=== PATIENT | female | born 1975 | race Caucasian/White ===

== ENCOUNTER 2016-09-05 05:28 | Emergency (ER) | payer MEDICAID ==
[2016-09-05] MEDS ORDERED: ONDANSETRON HCL IV 4 MG/2 ML VIAL IV ONE (05:46)
[2016-09-05] MEDS ORDERED: 0.9 % SODIUM CHLORIDE 1,000 ML BAG IV ONE (05:46)
[2016-09-05 05:55] LABS: BASO % 0.3 % (0-6); EOS % 5.1 % (0-6); GRAN % 51.5 % (47-80); HEMATOCRIT 42.3 % (35.0-47.0); HEMOGLOBIN 14.1 gm/dl (11.6-16.0); MEAN CELL VOLUME 85.8 fl (81-97); MEAN CORPUSCULAR HEMOGLOBIN 28.6 pg (27-33); MEAN CORPUSCULAR HGB CONC 33.3 g/dl (32-36); MONO % 5.1 % (0-9); PLATELET COUNT 461 K/uL (130-400); RED BLOOD COUNT 4.93 M/uL (3.80-5.40); RED CELL DISTRIBUTION WIDTH 14.3 % (11.5-14.5); WHITE BLOOD COUNT W/O DIFF 14.4 K/uL (4.2-12.2)
[2016-09-05 06:01] LABS: ALBUMIN 4.5 gm/dL (3.5-5.0); ALKALINE PHOSPHATASE 98 U/L (38-126); ALT/SGPT 33 U/L (9-52); ANION GAP 13.1 (7-16); AST/SGOT 22 U/L (14-36); BILIRUBIN,TOTAL 1.09 mg/dL (0.2-1.3); BLOOD UREA NITROGEN 10 mg/dL (7-17); CARBON DIOXIDE 21.9 mmol/L (22-30); CREATININE 0.9 mg/dL (0.52-1.04); EST GLOMERULAR FILTRATION RATE > 60 ml/min; GLUCOSE,RANDOM 119 mg/dL (70-110); LIPASE 99 U/L (23-300); TOTAL PROTEIN 8.4 gm/dL (6.3-8.2)
[2016-09-05] MEDS ORDERED: LORAZEPAM 2 MG/ML VIAL IV ONE ×2 (06:05→06:30)
[2016-09-05] MEDS ORDERED: PROMETHAZINE HCL 25 MG in 0.9 % SODIUM CHLORIDE 100ML 50 ML IVP ONE (06:06)
--- NOTE | 2016-09-05 06:07 | Emergency Department Record ---
History of Present Illness - General Chief complaint: Vomiting Stated complaint: ABDOMINAL PAIN Time Seen by Provider: 09/05/16 05:45 Source: Patient Mode of Arrival: Ambulatory - History of Present Illness Initial comments: Patient states she has been nauseated, vomiting, dry heaving intermittently for the past 2 days. She has LUQ AP which radiates to her left shoulder and into her lower left abdomen. She states this same problem happened one year ago when she went to [place] and was observed there for this. US abdomen at that time was normal. PMH show depression, anxiety, asthma, seasonal allergies, diverticulitis, pain syndrome right lower leg. MD complaint: Abdominal pain, Nausea, Vomiting Onset/Timin -: Days(s) Location: LUQ, LLQ Severity: Severe Severity scale (1-10): 9 Quality: Stabbing Consistency: Constant, Getting worse Improves with: None Worsens with: None Associated Symptoms: Nausea/vomiting - Related Data Home Medications Medication Instructions Recorded Confirmed Last Taken Escitalopram Oxalate [Lexapro] 20 mg PO DAILY 10/15/15 09/05/16 Unknown Tramadol HCl 50 mg PO BID 10/15/15 09/05/16 Unknown Buspirone HCl [Buspar] 15 mg PO BID 09/05/16 09/05/16 Unknown Lorazepam [Ativan] 1 mg PO ASDIR PRN 09/05/16 09/05/16 Unknown Allergies Allergy/AdvReac Type Severity Reaction Status Date / Time No Known Drug Allergies Allergy Verified 10/15/15 18:05 Travel Screening - Travel/Exposure Within Last 30 Days Have you traveled within the last 30 days?: No Review of Systems Reviewed: No additional complaints except as noted below Constitutional: Reports: As per HPI. Denies: Chills, Fever, Malaise, Night sweats, Weakness, Weight change Eyes: Reports: As per HPI. Denies: Eye discharge, Eye pain, Photophobia, Vision change ENT: Reports: As per HPI. Denies: Congestion, Dental pain, Ear pain, Epistaxis , Hearing loss, Throat pain Respiratory: Reports: As per HPI. Denies: Cough, Dyspnea, Hemoptysis, Stridor, Wheezes Cardiovascular: Reports: As per HPI. Denies: Arrhythmia, Chest pain, Dyspnea on exertion, Edema, Murmurs, Orthopnea, Palpitations, Paroxysmal nocturnal dyspnea, Rheumatic Fever, Syncope Endocrine: Reports: As per HPI. Denies: Fatigue, Heat or cold intolerance, Polydipsia, Polyuria Gastrointestinal: Reports: As per HPI. Denies: Abdominal pain, Constipation, Diarrhea, Hematemesis, Hematochezia, Melena, Nausea, Vomiting Genitourinary: Reports: As per HPI. Denies: Abnormal menses, Discharge, Dyspareunia, Dysuria, Frequency, Hematuria, Incontinence, Retention, Urgency Musculoskeletal: Reports: As per HPI. Denies: Arthralgia, Back pain, Gout, Joint swelling, Myalgia, Neck pain Skin: Reports: As per HPI. Denies: Bruising, Change in color, Change in hair/ nails, Lesions, Pruritus, Rash Neurological: Reports: As per HPI. Denies: Abnormal gait, Confusion, Headache, Numbness, Paresthesias, Seizure, Tingling, Tremors, Vertigo, Weakness Psychiatric: Reports: As per HPI. Denies: Anxiety, Auditory hallucinations, Depression, Homicidal thoughts, Suicidal thoughts, Visual hallucinations Hematological/Lymphatic: Reports: As per HPI. Denies: Anemia, Blood Clots, Easy bleeding, Easy bruising, Swollen glands Past Medical History - SOCIAL HISTORY Smoking Status: Never smoker Alcohol Use: None Drug Use: None - RESPIRATORY Hx Respiratory Disorders: Yes Hx Asthma: Yes (seasonal) Comment:: seasonal allergies - CARDIOVASCULAR Hx Cardio Disorders: No - NEURO Hx Neuro Disorders: No - GI Hx GI Disorders: Yes Hx Ulcer: Yes - Hx Genitourinary Disorders: No - ENDOCRINE Hx Endocrine Disorders: No - MUSCULOSKELETAL Hx Musculoskeletal Disorders: Yes Comment:: RSD - PSYCH Hx Psych Problems: Yes Hx Anxiety: Yes - HEMATOLOGY/ONCOLOGY Hx Hematology/Oncology Disorders: No Family Medical History Any Significant Family History?: Yes Hx Cancer: Father, Brother/Sister, Grandparents Physical Exam - General General Appearance: Alert, Oriented x3, Cooperative, No acute distress, Anxious , Other (obese, loudly coughing, gagging, making herself vomit/dry heave into emesis bag, diaphoretic, tachycardic) - Head Head exam: Normal inspection - Eye Eye exam: Normal appearance, PERRL Pupils: Normal accommodation - ENT ENT exam: Normal exam, Mucous membranes moist, Normal external ear exam, Normal orophraynx, TM's normal bilaterally Ear exam: Normal external inspection. negative: External canal tenderness Nasal Exam: Normal inspection. negative: Discharge, Sinus tenderness Mouth exam: Normal external inspection, Tongue normal Teeth exam: Normal inspection. negative: Dental caries Throat exam: Normal inspection. negative: Tonsillar erythema, Tonsillar exudate - Neck Neck exam: Normal inspection, Full ROM. negative: Tenderness - Respiratory Respiratory exam: Normal lung sounds bilaterally. negative: Respiratory distress - Cardiovascular Cardiovascular Exam: Normal rhythm, Normal heart sounds, Tachycardia - GI/Abdominal GI/Abdominal exam: Soft, Normal bowel sounds, Tenderness (LUQ tender). negative : Guarding, Rebound, Rigid - Rectal Rectal exam: Deferred - exam: Deferred - Extremities Extremities exam: Normal inspection, Full ROM, Normal capillary refill. negative: Calf tenderness, Pedal edema, Tenderness - Back Back exam: Reports: Normal inspection, Full ROM. Denies: Muscle spasm, Rash noted, Tenderness - Neurological Neurological exam: Alert, Normal gait, Oriented X3, Reflexes normal - Psychiatric Psychiatric exam: Normal affect, Normal mood - Skin Skin exam: Diaphoretic, Intact, Normal color, Warm Course Vital Signs 09/05/16 05:35 Temperature 98.4 F Pulse Rate [ 122 H Pulse Ox Probe] Respiratory 20 Rate Blood Pressure 123/110 [Left Arm] Pulse Ox 96 - Reevaluation(s) Reevaluation #1: Patient is moaning rocking tensely on her cart, loudly heaving into emesis bag , heard throughout the EDept. Patient was told to stop doing this, was coached for about 5 minutes on stopping the loud noise, stopping the coughing, stopping the rocking, relaxation technique instructed. I explained that she is to NOT do any of the above again and that she would get medication and she is to lay back in cart and try to sleep. Patient immediately stopped as instructed. 09/05/16 06:26 Reevaluation #2: Recheck of patient shows she has stopped the above behaviors, her diaphoresis has resolved, she is laying back on cart, more restful and quiet. She states she is "still very nauseous." She is up to bathroom and ativan is ordered. 09/05/16 06:31 Reevaluation #3: Patient has calmed down after being talked to and instructed, and meds given. Her skin is now dry, her pulse has decreased to under 100, and IV potassium has been hung for her low K on her blood work. Day shift physician will assume care and re-assess after infusion of potassium. UA and UDS just sent down to lab. She states she is still nauseated. 09/05/16 06:38 Reevaluation #4: Care turned over to day shift physician. 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
[2016-09-05] MEDS ORDERED: POTASSIUM CHL 20MEQ IN 1L NS 20 MEQ/1,000 ML BAG IV ONE (06:20)
[2016-09-05 06:41] LABS: URINE APPEARANCE CLEAR; URINE BILIRUBIN NEGATIVE (NEGATIVE); URINE BLOOD NEGATIVE (NEGATIVE); URINE COLOR YELLOW; URINE GLUCOSE (UA) NEGATIVE (NEGATIVE); URINE KETONE NEGATIVE (NEGATIVE); URINE LEUKOCYTE ESTERASE NEGATIVE (NEGATIVE); URINE NITRITE NEGATIVE (NEGATIVE); URINE PROTEIN NEGATIVE (NEGATIVE); URINE UROBILINOGEN 0.2 E.U./dL (0.20 - 1.00)
[2016-09-05 06:43] LABS: HCG,QUALITATIVE URINE NEGATIVE (NEGATIVE)
[2016-09-05 06:45] LABS: AMPHETAMINE SCREEN URINE NOT DETECTED; BARBITURATE SCREEN URINE NOT DETECTED; BENZODIAZEPINE SCREEN URINE DETECTED; COCAINE SCREEN URINE NOT DETECTED; METHADONE SCREEN URINE NOT DETECTED; METHAMPHETAMINE SCREEN NOT DETECTED; OPIATE SCREEN URINE NOT DETECTED; OXYCODONE SCREEN URINE NOT DETECTED; PHENCYCLIDINE SCREEN URINE NOT DETECTED; PROPOXYPHENE SCREEN URINE NOT DETECTED; THC SCREEN URINE DETECTED; TRICYCLIC ANTIDEPRESSANT SCRN NOT DETECTED
[2016-09-05] MEDS ORDERED: ONDANSETRON HCL IV 4 MG/2 ML VIAL IVP ONE (07:29)
[2016-09-05] MEDS ORDERED: DIPHENHYDRAMINE HCL IV 50 MG/ML VIAL IVP ONE (08:20)
--- NOTE | 2016-09-05 08:31 | Emergency Department Record ---
History of Present Illness - General Chief complaint: Vomiting Stated complaint: ABDOMINAL PAIN Time Seen by Provider: 09/05/16 05:45 Source: Patient Mode of Arrival: Ambulatory - History of Present Illness MD complaint: Abdominal pain, Nausea, Vomiting Onset/Timin -: Days(s) Location: [facility], [facility] Severity: Severe Severity scale (1-10): 9 Quality: Stabbing Consistency: Constant, Getting worse Improves with: None Worsens with: None Associated Symptoms: Nausea/vomiting - Related Data Home Medications Medication Instructions Recorded Confirmed Last Taken Escitalopram Oxalate [Lexapro] 20 mg PO DAILY 10/15/15 09/05/16 Unknown Tramadol HCl 50 mg PO BID 10/15/15 09/05/16 Unknown Buspirone HCl [Buspar] 15 mg PO BID 09/05/16 09/05/16 Unknown Lorazepam [Ativan] 1 mg PO ASDIR PRN 09/05/16 09/05/16 Unknown Previous Rx's Medication Instructions Recorded Promethazine HCl [Phenergan] 12.5 mg PO TID #7 tablet 09/05/16 Allergies Allergy/AdvReac Type Severity Reaction Status Date / Time No Known Drug Allergies Allergy Verified 10/15/15 18:05 Travel Screening - Travel/Exposure Within Last 30 Days Have you traveled within the last 30 days?: No Review of Systems Constitutional: Reports: As per HPI. Denies: Chills, Fever, Malaise, Night sweats, Weakness, Weight change Eyes: Reports: As per HPI. Denies: Eye discharge, Eye pain, Photophobia, Vision change ENT: Reports: As per HPI. Denies: Congestion, Dental pain, Ear pain, Epistaxis , Hearing loss, Throat pain Respiratory: Reports: As per HPI. Denies: Cough, Dyspnea, Hemoptysis, Stridor, Wheezes Cardiovascular: Reports: As per HPI. Denies: Arrhythmia, Chest pain, Dyspnea on exertion, Edema, Murmurs, Orthopnea, Palpitations, Paroxysmal nocturnal dyspnea, Rheumatic Fever, Syncope Endocrine: Reports: As per HPI. Denies: Fatigue, Heat or cold intolerance, Polydipsia, Polyuria Gastrointestinal: Reports: As per HPI. Denies: Abdominal pain, Constipation, Diarrhea, Hematemesis, Hematochezia, Melena, Nausea, Vomiting Genitourinary: Reports: As per HPI. Denies: Abnormal menses, Discharge, Dyspareunia, Dysuria, Frequency, Hematuria, Incontinence, Retention, Urgency Musculoskeletal: Reports: As per HPI. Denies: Arthralgia, Back pain, Gout, Joint swelling, Myalgia, Neck pain Skin: Reports: As per HPI. Denies: Bruising, Change in color, Change in hair/ nails, Lesions, Pruritus, Rash Neurological: Reports: As per HPI. Denies: Abnormal gait, Confusion, Headache, Numbness, Paresthesias, Seizure, Tingling, Tremors, Vertigo, Weakness Psychiatric: Reports: As per HPI. Denies: Anxiety, Auditory hallucinations, Depression, Homicidal thoughts, Suicidal thoughts, Visual hallucinations Hematological/Lymphatic: Reports: As per HPI. Denies: Anemia, Blood Clots, Easy bleeding, Easy bruising, Swollen glands Past Medical History - SOCIAL HISTORY Smoking Status: Never smoker Alcohol Use: None Drug Use: None - RESPIRATORY Hx Respiratory Disorders: Yes Hx Asthma: Yes (seasonal) Comment:: seasonal allergies - CARDIOVASCULAR Hx Cardio Disorders: No - NEURO Hx Neuro Disorders: No - GI Hx GI Disorders: Yes Hx Ulcer: Yes - Hx Genitourinary Disorders: No - ENDOCRINE Hx Endocrine Disorders: No - MUSCULOSKELETAL Hx Musculoskeletal Disorders: Yes Comment:: RSD - PSYCH Hx Psych Problems: Yes Hx Anxiety: Yes - HEMATOLOGY/ONCOLOGY Hx Hematology/Oncology Disorders: No Family Medical History Any Significant Family History?: Yes Hx Cancer: Father, Brother/Sister, Grandparents Course Vital Signs 09/05/16 09/05/16 05:35 06:46 Temperature 98.4 F Pulse Rate [ 122 H 79 Pulse Ox Probe] Respiratory 20 19 Rate Blood Pressure 123/110 154/86 [Left Arm] Pulse Ox 96 98 - Reevaluation(s) Reevaluation #1: 09/05/16 08:26 pt rec'd more zofran and benadryl. pt denies ap. pt recd iv potassium. pt wants to go home Medical Decision Making - Lab Data Result diagrams: 09/05/16 05:50 09/05/16 05:50 Lab Results 09/05/16 09/05/16 09/05/16 Range/Units 05:50 05:50 06:30 WBC 14.4 H (4.2-12.2) K/uL RBC 4.93 (3.80-5.40) M/uL Hgb 14.1 (11.6-16.0) gm/dl Hct 42.3 (35.0-47.0) % MCV 85.8 (81-97) fl MCH 28.6 (27-33) pg MCHC 33.3 (32-36) g/dl RDW 14.3 (11.5-14.5) % Plt Count 461 H (130-400) K/uL MPV 9.0 (7.4-10.4) fl Gran % 51.5 (47-80) % Lymphocytes % 38.0 (16-45) % Monocytes % 5.1 (0-9) % Eosinophils % 5.1 (0-6) % Basophils % 0.3 (0-6) % Sodium 140 (136-145) mmol/L Potassium 3.1 L (3.5-5.1) mmol/L Chloride 105 (98-107) mmol/L Carbon Dioxide 21.9 L (22-30) mmol/L Anion Gap 13.1 (7-16) BUN 10 (7-17) mg/dL Creatinine 0.9 (0.52-1.04) mg/dL Estimated GFR > 60 ml/min Random Glucose 119 H (70-110) mg/dL Calcium 9.0 (8.5-10.1) mg/dL Total Bilirubin 1.09 (0.2-1.3) mg/dL Direct Bilirubin 0.0 (0-0.3) mg/dL AST 22 (14-36) U/L ALT 33 (9-52) U/L Alkaline Phosphatase 98 (38-126) U/L Total Protein 8.4 H (6.3-8.2) gm/dL Albumin 4.5 (3.5-5.0) gm/dL Lipase 99 (23-300) U/L Urine Color Yellow Urine Appearance Clear Urine pH 6.5 (5.0-8.0) Ur Specific [place] 1.015 (1.002-1.030) Urine Protein Negative (NEGATIVE) Urine Glucose (UA) Negative (NEGATIVE) Urine Ketones Negative (NEGATIVE) Urine Blood Negative (NEGATIVE) Urine Nitrite Negative (NEGATIVE) Urine Bilirubin Negative (NEGATIVE) Urine Urobilinogen 0.2 (0.20 - 1.00) E.U./dL Ur Leukocyte Esterase Negative (NEGATIVE) Urine HCG, Qual Negative (NEGATIVE) Urine Opiates Screen Ur Oxycodone Screen Urine Methadone Screen Ur Propoxyphene Screen Ur Barbituates Screen Ur Tricyclics Screen Ur Phencyclidine Scrn Ur Amphetamine Screen U Methamphetamines Scrn U Benzodiazepines Scrn Urine Cocaine Screen Urine Cannabis Screen 09/05/16 Range/Units 06:30 WBC (4.2-12.2) K/uL RBC (3.80-5.40) M/uL Hgb (11.6-16.0) gm/dl Hct (35.0-47.0) % MCV (81-97) fl MCH (27-33) pg MCHC (32-36) g/dl RDW (11.5-14.5) % Plt Count (130-400) K/uL MPV (7.4-10.4) fl Gran % (47-80) % Lymphocytes % (16-45) % Monocytes % (0-9) % Eosinophils % (0-6) % Basophils % (0-6) % Sodium (136-145) mmol/L Potassium (3.5-5.1) mmol/L Chloride (98-107) mmol/L Carbon Dioxide (22-30) mmol/L Anion Gap (7-16) BUN (7-17) mg/dL Creatinine (0.52-1.04) mg/dL Estimated GFR ml/min Random Glucose (70-110) mg/dL Calcium (8.5-10.1) mg/dL Total Bilirubin (0.2-1.3) mg/dL Direct Bilirubin (0-0.3) mg/dL AST (14-36) U/L ALT (9-52) U/L Alkaline Phosphatase (38-126) U/L Total Protein (6.3-8.2) gm/dL Albumin (3.5-5.0) gm/dL Lipase (23-300) U/L Urine Color Urine Appearance Urine pH (5.0-8.0) Ur Specific [place] (1.002-1.030) Urine Protein (NEGATIVE) Urine Glucose (UA) (NEGATIVE) Urine Ketones (NEGATIVE) Urine Blood (NEGATIVE) Urine Nitrite (NEGATIVE) Urine Bilirubin (NEGATIVE) Urine Urobilinogen (0.20 - 1.00) E.U./dL Ur Leukocyte Esterase (NEGATIVE) Urine HCG, Qual (NEGATIVE) Urine Opiates Screen Not detected Ur Oxycodone Screen Not detected Urine Methadone Screen Not detected Ur Propoxyphene Screen Not detected Ur Barbituates Screen Not detected Ur Tricyclics Screen Not detected Ur Phencyclidine Scrn Not detected Ur Amphetamine Screen Not detected U Methamphetamines Scrn Not detected U Benzodiazepines Scrn Detected Urine Cocaine Screen Not detected Urine Cannabis Screen Detected Disposition Clinical Impression: Hypokalemia Nausea and vomiting Qualifiers: Vomiting type: psychogenic vomiting Qualified Code(s): F50.89 - Other specified eating disorder Disposition: Home, Self-Care Instructions: Generalized Anxiety Disorder (ED), Acute Nausea and Vomiting (ED) Additional Instructions: follow up with family doctor. return sooner if worse Prescriptions: Promethazine HCl [Phenergan] 12.5 mg PO TID #7 tablet Forms: Patient Portal Access Quality - Quality Measures Quality Measures: N/A - Blood Pressure Screening Blood Pressure Classification: Pre-Hypertensive BP Reading Systolic Measurement: 154 Diastolic Measurement: 86 Screening for High Blood Pressure: < First Hypertensive BP, F/U Documented > [ G8950] First Hypertensive Follow-up Interventions: Follow-up with rescreen GT 1 day and LT 4 weeks.
== END 2016-09-05 08:47 | disposition home or self-care (01) ==
LOC: ER 05:28
DX: E87.6 Hypokalemia (principal); F80.89 Other developmental disorders of speech and language; R11.2 Nausea with vomiting, unspecified; R10.84 Generalized abdominal pain; Z79.899 Other long term (current) drug therapy
CPT/HCPCS: 99285 ×2; 96376; 96374; 96375; 83690; 85025; 80076; 80048; 81003; 81025; 80305; J2405; J2060; J1200; J2550; J7030

== ENCOUNTER 2016-09-05 18:15 | Emergency (ER) | payer MEDICAID | END 2016-09-05 19:31 | disposition left against medical advice (07) | LOC: ER 18:15 | DX: Z53.20 Procedure and treatment not carried out because of patient's decision for unspecified reasons (principal) ==

== ENCOUNTER 2017-07-29 07:36 | Emergency (ER) | payer MEDICAID ==
--- NOTE | 2017-07-29 08:05 | Emergency Department Record ---
History of Present Illness - General Chief Complaint: Abdominal Pain Stated Complaint: ABDOMINAL PAIN/ANXIETY Time Seen by Provider: 07/29/17 07:58 Source: Patient, RN notes reviewed Mode of Arrival: Ambulatory - History of Present Illness Initial Comments: patient states her mom got a diagnosis of lung cancer and anxiety started with abdominal pain and vomiting times 20 and diarrhea times 10 but she thinks it is anxiety over her mom. She tried an ultram but vomited it up for epigastric abdominal pain. MD Complaint: Abdominal pain Onset/Timin -: Hour(s) Location: LUQ, LLQ Radiation: Other Severity scale (1-10): 10 Quality: Burning Consistency: Constant Improves With: Nothing Worsens With: Nothing Context: Other Associated Symptoms: Other - Related Data LMP (females 10-50): This week Patient : No Previous Rx's Medication Instructions Recorded Lorazepam [Ativan] 0.5 mg PO Q8HR #10 tablet 07/29/17 Lorazepam [Ativan] 0.5 mg PO Q8HR #10 tablet 07/29/17 Omeprazole 20 mg PO DAILY #30 cap. 07/29/17 Promethazine HCl [Phenergan] 25 mg PO Q6HR #10 tablet 07/29/17 Allergies Allergy/AdvReac Type Severity Reaction Status Date / Time No Known Drug Allergies Allergy Verified 07/29/17 07:41 Travel Screening - Travel/Exposure Within Last 30 Days Have you traveled within the last 30 days?: No - Travel/Exposure Within Last Year Have you traveled outside the [place] in the last year?: No - Additonal Travel Details Have you been exposed to anyone with a communicable illness?: No - Travel Symptoms Symptom Screening: None Review of Systems Reviewed: No additional complaints except as noted below Constitutional: Reports: As per HPI. Denies: Chills, Fever, Malaise, Night sweats, Weakness, Weight change Eyes: Reports: As per HPI. Denies: Eye discharge, Eye pain, Photophobia, Vision change ENT: Reports: As per HPI. Denies: Congestion, Dental pain, Ear pain, Epistaxis , Hearing loss, Throat pain Respiratory: Reports: As per HPI. Denies: Cough, Dyspnea, Hemoptysis, Stridor, Wheezes Cardiovascular: Reports: As per HPI. Denies: Arrhythmia, Chest pain, Dyspnea on exertion, Edema, Murmurs, Orthopnea, Palpitations, Paroxysmal nocturnal dyspnea, Rheumatic Fever, Syncope Endocrine: Reports: As per HPI. Denies: Fatigue, Heat or cold intolerance, Polydipsia, Polyuria Gastrointestinal: Reports: As per HPI, Abdominal pain (epigastric), Diarrhea, Nausea, Vomiting. Denies: Constipation, Hematemesis, Hematochezia, Melena Genitourinary: Reports: As per HPI. Denies: Abnormal menses, Discharge, Dyspareunia, Dysuria, Frequency, Hematuria, Incontinence, Retention, Urgency Musculoskeletal: Reports: As per HPI. Denies: Arthralgia, Back pain, Gout, Joint swelling, Myalgia, Neck pain Skin: Reports: As per HPI. Denies: Bruising, Change in color, Change in hair/ nails, Lesions, Pruritus, Rash Neurological: Reports: As per HPI. Denies: Abnormal gait, Confusion, Headache, Numbness, Paresthesias, Seizure, Tingling, Tremors, Vertigo, Weakness Psychiatric: Reports: As per HPI. Denies: Anxiety, Auditory hallucinations, Depression, Homicidal thoughts, Suicidal thoughts, Visual hallucinations Hematological/Lymphatic: Reports: As per HPI. Denies: Anemia, Blood Clots, Easy bleeding, Easy bruising, Swollen glands Past Medical History - SOCIAL HISTORY Smoking Status: Never smoker Alcohol Use: None Drug Use: Occasional Drug Use Detail:: Marijuana - RESPIRATORY Hx Respiratory Disorders: Yes Hx Asthma: Yes (seasonal) Comment:: seasonal allergies - CARDIOVASCULAR Hx Cardio Disorders: No - NEURO Hx Neuro Disorders: No - GI Hx GI Disorders: Yes Hx Ulcer: Yes - Hx Genitourinary Disorders: No - ENDOCRINE Hx Endocrine Disorders: No - MUSCULOSKELETAL Hx Musculoskeletal Disorders: Yes Comment:: RSD - PSYCH Hx Psych Problems: Yes Hx Anxiety: Yes (Typically develops abdominal pain) - HEMATOLOGY/ONCOLOGY Hx Hematology/Oncology Disorders: No Family Medical History Any Significant Family History?: Yes Hx Cancer: Father, Brother/Sister, Grandparents Physical Exam - General General Appearance: Alert, Oriented x3, Cooperative, No acute distress - Head Head exam: Normal inspection - Eye Eye exam: Normal appearance, PERRL Pupils: Normal accommodation - ENT ENT exam: Normal exam, Mucous membranes moist, Normal external ear exam, Normal orophraynx, TM's normal bilaterally Ear exam: Normal external inspection. negative: External canal tenderness Nasal Exam: Normal inspection. negative: Discharge, Sinus tenderness Mouth exam: Normal external inspection, Tongue normal Teeth exam: Normal inspection. negative: Dental caries Throat exam: Normal inspection. negative: Tonsillar erythema, Tonsillar exudate - Neck Neck exam: Normal inspection, Full ROM. negative: Tenderness - Respiratory Respiratory exam: Normal lung sounds bilaterally. negative: Respiratory distress - Cardiovascular Cardiovascular Exam: Regular rate, Normal rhythm, Normal heart sounds - GI/Abdominal GI/Abdominal exam: Soft, Normal bowel sounds. negative: Tenderness - Rectal Rectal exam: Deferred - exam: Deferred - Extremities Extremities exam: Normal inspection, Full ROM, Normal capillary refill. negative: Tenderness - Back Back exam: Reports: Normal inspection, Full ROM. Denies: Muscle spasm, Rash noted, Tenderness - Neurological Neurological exam: Alert, Normal gait, Oriented X3, Reflexes normal - Psychiatric Psychiatric exam: Normal affect, Normal mood - Skin Skin exam: Dry, Intact, Normal color, Warm Course Vital Signs 07/29/17 07:38 Temperature 97.9 F Pulse Rate 93 H Respiratory 20 Rate Blood Pressure 164/120 Pulse Ox 97 - Reevaluation(s) Reevaluation #1: feeling better 07/29/17 10:01 Medical Decision Making - Lab Data Result diagrams: 07/29/17 08:15 07/29/17 08:15 Disposition Clinical Impression: Panic attack Abdominal pain Qualifiers: Abdominal location: epigastric Qualified Code(s): R10.13 - Epigastric pain Gastritis Qualifiers: Gastritis type: unspecified gastritis Chronicity: acute Gastritis bleeding: without bleeding Qualified Code(s): K29.00 - Acute gastritis without bleeding Disposition: Home, Self-Care Condition: (1) Good Instructions: Acute Nausea and Vomiting (ED), Generalized Anxiety Disorder (ED) Additional Instructions: follow up with Primary Dr in 2-3 days Prescriptions: Promethazine HCl [Phenergan] 25 mg PO Q6HR #10 tablet Lorazepam [Ativan] 0.5 mg PO Q8HR #10 tablet Lorazepam [Ativan] 0.5 mg PO Q8HR #10 tablet Omeprazole 20 mg PO DAILY #30 cap.dr Forms: Patient Portal Access Time of Disposition: 10:08 Quality - Quality Measures Quality Measures: N/A - Blood Pressure Screening Does Patient Have Any of the Following: No Blood Pressure Classification: Hypertensive Reading Systolic Measurement: 164 Diastolic Measurement: 120 Screening for High Blood Pressure: < First Hypertensive BP, F/U Documented > [ G8950] First Hypertensive Follow-up Interventions: Referral to alternative/primary care provider.
[2017-07-29] MEDS: 0.9 % SODIUM CHLORIDE 1,000 ML BAG IV ONE (08:24)
[2017-07-29] MEDS: SUCRALFATE 1 G/10 ML UD PO ONE (08:24)
[2017-07-29] MEDS: LORAZEPAM 2 MG/ML VIAL IV ONE (08:24)
[2017-07-29] MEDS: ONDANSETRON HCL IV 4 MG/2 ML VIAL IV ONE (08:24)
[2017-07-29 08:32] LABS: URINE APPEARANCE CLEAR; URINE BILIRUBIN NEGATIVE (NEGATIVE); URINE BLOOD SMALL (NEGATIVE); URINE COLOR YELLOW; URINE KETONE NEGATIVE (NEGATIVE); URINE LEUKOCYTE ESTERASE NEGATIVE (NEGATIVE); URINE NITRITE NEGATIVE (NEGATIVE); URINE PROTEIN TRACE (NEGATIVE); URINE UROBILINOGEN 0.2 E.U./dL (0.20 - 1.00)
[2017-07-29 08:33] LABS: HEMOGLOBIN 12.8 gm/dl (11.6-16.0); MEAN CELL VOLUME 86.4 fl (81-97); MEAN CORPUSCULAR HEMOGLOBIN 27.6 pg (27-33); MEAN PLATELET VOLUME 9.6 fl (7.4-10.4); PLATELET COUNT 480 K/uL (130-400); RED BLOOD COUNT 4.63 M/uL (3.80-5.40); RED CELL DISTRIBUTION WIDTH 14.3 % (11.5-14.5); WHITE BLOOD COUNT W/O DIFF 15.7 K/uL (4.2-12.2)
[2017-07-29 08:44] LABS: BLOOD UREA NITROGEN 9 mg/dL (6-20)
[2017-07-29 08:45] LABS: CREATININE 0.8 mg/dL (0.5-0.9); EST GLOMERULAR FILTRATION RATE > 60 mL/min; HCG,QUALITATIVE URINE NEGATIVE (NEGATIVE); TOTAL PROTEIN 7.6 g/dL (6.6-8.7); URINE SQUAMOUS EPITHELIAL CELL 0 - 2 /hpf; URINE WBC 0 - 2 (0-2/hpf)
[2017-07-29 08:47] LABS: GLUCOSE,RANDOM 160 mg/dL (74-109)
[2017-07-29 08:50] LABS: ALBUMIN 4.3 g/dL (4.0-5.0); ALKALINE PHOSPHATASE 104 U/L (35-104); ALT/SGPT 14 U/L (<33); AST/SGOT 19 U/L (10.0-35.0); LIPASE 16 U/L (13-60)
[2017-07-29 08:51] LABS: BILIRUBIN,DIRECT < 0.2 mg/dL (0-0.3)
[2017-07-29] MEDS: HYDROMORPHONE HCL 2 MG/ML VIAL IVP ONE (09:41)
[2017-07-29] MEDS: PROMETHAZINE HCL 25 MG in 0.9 % SODIUM CHLORIDE 100ML 100 ML IVPB ONE (09:45)
[2017-07-29] MEDS: DIPHENHYDRAMINE HCL 50 MG/ML VIAL IVP ONE (10:25)
== END 2017-07-29 10:52 | disposition home or self-care (01) ==
LOC: ER 07:36
DX: K29.00 Acute gastritis without bleeding (principal); R10.13 Epigastric pain; R11.11 Vomiting without nausea; F41.0 Panic disorder [episodic paroxysmal anxiety]; F43.0 Acute stress reaction
CPT/HCPCS: 80048; 80076; 81001; 81025; 83690; 85027; 96365; 96375; 99284; J2405; J2550; J7030